=== PATIENT | female | born 1955 | race Caucasian/White ===

== ENCOUNTER 2019-03-08 19:23 | Emergency (ER) | payer BC ==
[2019-03-08] MEDS ORDERED: Lidocaine 2% w/ EPI 1:200,000* 20 ML VIAL INJ ONE (20:19)
--- NOTE | 2019-03-08 21:58 | ED ---
Throat Pain/Nasal Congestion - HPI Summary HPI Summary: 63-year-old female presents with foreign body in left ear today. She was seen at urgent care and removed part of legs from left ear. They were unsure tympanic membrane was perforated. now has bleeding present in the canal from them trying to remove it. She has no significant medical conditions. She states she has extreme pain in the left ear. She also has some hearing loss. - History of Current Complaint Chief Complaint: EDEarPain Time Seen by Provider: 03/08/19 20:15 - Allergies/Home Medications Allergies/Adverse Reactions: Allergies Allergy/AdvReac Type Severity Reaction Status Date / Time garlic Allergy See Comment Verified 03/08/19 19:30 metronidazole [From Flagyl] Allergy Anaphylatic Verified 03/08/19 19:30 Shock PMH/Surg Hx/FS Hx/Imm Hx Endocrine/Hematology History: Denies: Hx Anticoagulant Therapy Cardiovascular History: Denies: Hx Myocardial Infarction Infectious Disease History: No Infectious Disease History: Denies: Traveled Outside the [place] in Last 30 Days - Family History Known Family History: Positive: Non-Contributory - Social History Alcohol Use: Occasionally Substance Use Type: Reports: None Smoking Status (MU): Unknown if Ever Smoked Review of Systems Negative: Fever Positive: Ear Ache Negative: Chest Pain Negative: Shortness Of Breath All Other Systems Reviewed And Are Negative: Yes Physical Exam Triage Information Reviewed: Yes Vital Signs On Initial Exam: Initial Vitals Temp Pulse Resp BP Pulse Ox 98.4 F 65 18 134/100 98 03/08/19 19:28 03/08/19 19:28 03/08/19 19:28 03/08/19 19:28 03/08/19 19:28 Vital Signs Reviewed: Yes Appearance: Positive: Well-Appearing Skin: Positive: Warm, Dry Head/Face: Positive: Normal Head/Face Inspection Eyes: Positive: Normal, Conjunctiva Clear ENT: Positive: Pharynx normal, Other - beetle present in right ear canal, abrasion with bleeding also noted to right ear canal, unable to determine if TM is ruptured Respiratory/Lung Sounds: Positive: Clear to Auscultation, Breath Sounds Present Cardiovascular: Positive: Normal, RRR Musculoskeletal: Positive: Normal Neurological: Positive: Normal Psychiatric: Positive: Normal Diagnostics - Vital Signs Vital Signs Temp Pulse Resp BP Pulse Ox 03/08/19 19:28 98.4 F 65 18 134/100 98 - Laboratory Lab Statement: Any lab studies that have been ordered have been reviewed, and results considered in the medical decision making process. EENT Course/Dx - Course Course Of Treatment: 63-year-old female presents with foreign body in left ear today. She was seen at urgent care and removed part of legs from left ear. They were unsure tympanic membrane was perforated. now has bleeding present in the canal from them trying to remove it. She has no significant medical conditions. She states she has extreme pain in the left ear. She also has some hearing loss. On exam has beetle seen in left ear. Attempts to remove it with suction. Attempted to remove it by flushing twice. Attempted to remove it by forceps but was unable to do so. patient states just wants follow-up with ENT. We will place on Cipro. Patient understands and agrees the plan. - Differential Diagnoses Differential Diagnoses: Foreign Body, Otitis Externa, Perforated TM - Diagnoses Provider Diagnoses: Foreign body in left ear Discharge - Sign-Out/Discharge Documenting (check all that apply): Patient Departure Patient Received Moderate/Deep Sedation with Procedure: No - Discharge Plan Condition: Good Disposition: HOME Patient Education Materials: Ear Foreign Body (ED) Referrals: No Primary Care Phys,NOPCP [Primary Care Provider] - Cristóbal Arevalo MD [Medical Doctor] - Additional Instructions: Use cipro 4 drops twice a day for 7 days Follow up with ENT to get foreign body removed Take Tylenol or ibuprofen for pain every 6 hours as needed Return to ED if develop any new or worsening symptoms - Billing Disposition and Condition Condition: GOOD Disposition: Home
[2019-03-08] MEDS ORDERED: Ciprofloxacin 0.3% OPTH.SOL* BTL ONE (21:59)
== END 2019-03-08 22:29 | disposition home or self-care (01) ==
LOC: ED 19:23
DX: T16.2XXA Foreign body in left ear, initial encounter (principal); X58.XXXA Exposure to other specified factors, initial encounter
CPT/HCPCS: 96372; 99281; A9270-GY